=== PATIENT | male | born 1995 | race Hispanic/Latino ===

== ENCOUNTER 2016-11-17 16:10 | Emergency (ER) | payer OTHER ==
[~2016-11-17] VITALS: Ht 177.8 cm; Wt 127.3 kg
[2016-11-17 16:13] VITALS: BP 134/88; PULSE 91; RESP 16; O2SAT 96
[2016-11-17] MEDS ORDERED: 0.9% Sodium Chloride 1,000 ML IV SCH (16:40)
[2016-11-17] MEDS ORDERED: Vancomycin Dose per Pharmacist XX ONE (16:45)
--- NOTE | 2016-11-17 16:56 | PCM.CONORT ---
Subjective Surgeon Admitting Provider: Attending Provider: Primary Care Physician:Nopcp Other Provider: Reason for Consultation: right hand swelling and pain Allergy Allergies: Coded Allergies: No Known Allergies (Verified , 11/17/16) Medications No Active Prescriptions or Reported Meds History History of ENT Problems?: No HEENT History: Denies:: Abnormal Airway Cataracts Difficult Intubation Dysphagia Glaucoma Hearing Problem Sinus Problem TMJ Denture Type: None Teeth Condition: Within Normal Limits Hx of Heart Problems?: No Cardiovascular History: Denies:: AICD Abdominal Aortic Aneurism Atrial Fibrillation Cardiac Surgery Chest Pain Congestive Heart Failure Coronary Artery Disease Edema Heart Murmur Hypertension Irregular Heartbeat Pacemaker Peripheral Vascular Rheumatic Fever Thrombophlebitis Valvular Heart Disease Hx of Respiratory Problem?: No Respiratory History: Denies:: Asthma COPD Chest Surgery Cough Dyspnea Emphysema Hemoptysis Oxygen Administration Pneumonia Pulmonary Embolism Tuberculosis Use of C-PAP Machine Use of Inhalers / NEBS Hx Neurologic Problems?: No Neurological History: Denies:: Alzheimer's Disease CVA Dementia Dizziness Headaches Multiple Sclerosis Parkinson's Disease Peripheral Neuropathy Seizures TIA Hx of GI Problems?: No Gastrointestinal History: Denies:: Cirrhosis Diverticulitis Gall Bladder Disease Gastroesphageal Reflux Gastrointestinal Bleeding Heartburn Hepatitis Hiatal Hernia Liver Disease Rectal Bleeding Hx of Problems?: No Genitourinary History: Denies:: HX of Hemodialysis Kidney Stones Urinary Tract Infection Male Hx: Denies:: Prostate Problems Scrotal Mass Testicular Surgery Skin History: Denies:: History Skin Disorders? Pressure Ulcers Hx Musculoskeletal Problems?: Yes Other History/Comment Abhijeet Cornejo is a 21 year old hand dominant patient who presents to the ER with right hand pain and swelling and consultation for orthopedic evaluation of their right hand requested for ongoing symptoms. The patient states that their pain is a sharp in nature and mild/moderate in severity localized to the volar aspect of the 1st webspace of the hand without radiation. This has been progressing over the past [time] after [incident/trauma]. Moreover, the pain is exacerbated by activities, especially with movement. Rest seems to improve the symptoms. Previous treatment has included none. There is no reports numbness, tingling, or weakness to the affected distal upper extremity. The patient denies any fever, chills, nausea, vomiting, chest pain, shortness of breath, or calf tenderness. He reports a possible spider bite 2 weeks ago at his volar IP joint with no issues but reports working out on Wednesday with subsequent pain and swelling that has worsened to her 1st webspace. He denies any current medical issues, reports no tobacco use, hx of DM, does reports hx of right femur sx in the past as a child. Work/hobbies/sports include: [employer] Hx of Psycho/Social Problems?: No Psycho Social History: Denies:: Anxiety Bipolar Disorder Hx Depression Suicide Attempt Hx Surgeries?: No Hx Any Other Health Problems?: No Other History: Denies:: Cancer Endocrine Disease Hospitalization Thyroid Disease History Blood Transfusions: Denies:: Accept Blood Products? Blood Transfuse Reaction Blood Transfusions Hx Diabetes: No Hx Alcohol Use: NoHx Substance Use: No Smoking Status: Never Smoker Have You Smoked inLast 12 mo: No Objective Exam Vital Signs & I/O Vital Sign- Last 8 Hours Date Time Temp Pulse Resp B/P Pulse Ox O2 Delivery O2 Flow Rate FiO2 11/17/16 16:13 36.3 91 16 134/88 96 Room Air Review of Systems: Constitutional: Negative, except as otherwise mentioned in the history above. Ophthalmologic: Negative, except as otherwise mentioned in the history above. Cardiovascular: Negative, except as otherwise mentioned in the history above. Respiratory: Negative, except as otherwise mentioned in the history above. Gastrointestinal: Negative, except as otherwise mentioned in the history above. Genitourinary: Negative, except as otherwise mentioned in the history above. Musculoskeletal: Negative, except as otherwise mentioned in the history above. Neurological: Negative, except as otherwise mentioned in the history above. Psychiatric: Negative, except as otherwise mentioned in the history above. Hematologic/Lymphatic: Negative, except as otherwise mentioned in the history above. Allergic/Immunologic: Negative, except as otherwise mentioned in the history above. H&P Surgical Exam Exam Musculoskeletal: CONST: WD,WN, NAD, A+OX3 OCULAR: EOMI, no conjunctivitis/icterus ENT: no deformities, scars or lesions CARDIAC: Pulse is regular. No cyanosis,clubbing,edema RESP: regular,unlabored MSK: normal light touch median, ulnar, radial, lateral antebrachial, axillary nerve distribution. Intact AIN, PIN, u, r, ax motor. C5-T1 intact, 2+ r/u pulse right hand - scars, -discoloration/temp, + swelling, + loculation with nidus to the volar 1st webspace, - atrophy or asymmetry, - cascade sign, no global ligamentous laxity, TTP volar 1st webspace with fluctuance and loculations, swelling extends to border of dorsum of hand, ceases at thenar eminence ROM right Ext-flex Resisted Strength/Pain 0-85 MCP 5-/5 / + 0-110 PIP 5/5 / - 0-65 DIP 5/5 / - 60 -60 Wrist 5/5 / - 50 deg of radioulnar arc +painful arc, - crepitus Signs deferred H&P Preop Plan Impression right hand abscess Problems: Plan recommend xray of right hand MRI with contrast to evaluate extent as needed recommend bedside I+D to the right hand with exploration of septations and loculation with copious irrigation recommend packing with iodoform gauze with loose closure f/u in 2-3 days in clinic at [facility] for packing removal and evaluation oral abx X 10-14 days discussed signs /symptoms necessitating emergent intervention keep elevated oral pain meds for pain control NWB RUBinu please call with questions Won Hazel MD Nov 17, 2016 16:56
[2016-11-17] MEDS ORDERED: cefTRIAXone 2,000 mg/D5W 50 mL IV Minibag Plus IV ONE ×2 (17:00)
[2016-11-17] MEDS ORDERED: Vancomycin Inj 2,250 MG in 0.9% Sodium Chloride 500 ML IV ONE (17:00)
--- NOTE | 2016-11-17 17:00 | ED.REPORT ---
HPI-Hand Prob/Inj Date of Service Nov 17, 2016 ED Provider: Won Agudelo History of Present Illness: 21yo male presents with marked R hand erythema and swelling x 3 days. He reports he thought he had a "bug bite" in his R thumb 2 weeks ago and tried a home I&D at [facility] R thumb IP joint. R hand pain and swelling begain 3 days ago, and has worsened. No fever. Nursing Notes Stated Complaint: BUG BITE, RIGHT HAND INFECTION Chief Complaint: Extremity Trauma Nursing Notes Reviewed: Yes Allergies: Coded Allergies: No Known Allergies (Verified , 11/17/16) Scheduled Doxycycline Hyclate (Doxycycline Hyclate) 100 Mg Tablet 100 MG PO BID Scheduled PRN Hydrocodone-Acetaminophen 5-325 mg (Hydrocodone-Acetaminophen 5-325 mg) 1 Each Tablet 1 TABLET PO Q4H PRN PRN For Pain General Time Seen by Provider: 16:25 Chief Complaint Hand swelling right Hx Obtained From: Patient Onset Occurred: 3 days ago Symptom Duration: Since onset Progression Since Onset: Gradually worsening Location: Right Hand: : Thenar eminence Radiation: Radiation present Severity: Current: Moderate Severity: Maximum: Moderate Associated with: Denies: Fever, Numbness Pertinent Negative: Pt denies other symptoms Immunizations: Tetanus not up to date Recent Healthcare: No recent doctor visit Similar Sx Previous: No Past Medical History Past Medical History Notes: Pilonodal cyst Past Medical History Previously healthy primary care at [facility] Past Surgical History Abscess I&D Smoking History Never Smoker Social History Alcohol Use: Denies alcohol use Drug Use: Denies drug use Ambulatory Status Independent Review of Systems Constitutional: Denies: Chills, Fever Musculoskeletal: Reports: Extremity pain, Extremity swelling Neurologic: Denies: Focal weakness Physical Exam Initial Vital Signs Vital Signs (First) Date Time Temp Pulse Resp B/P Pulse Ox O2 Delivery O2 Flow Rate FiO2 11/17/16 16:13 36.3 91 16 134/88 96 Room Air Initial VS: Vital signs normal Right Hand: Positive: Erythema present, ROM reduced, Swelling present... ( Moderate), Tenderness present... (Moderate), Warmth present, Negative: Deformity present, Neuro deficit present... General/Constitutional: Awake, Alert, Not toxic appearing Respiratory / Chest: Breath sounds NL, Breath sounds = bilat, No respiratory distress Cardiovascular: Heart rate NL, Regular rhythm, Heart sounds NL Abdomen: Soft Lymphatic: No axillary adenopathy Interpretation & Diagnostics Lab Results Interpretation Result Diagram: 11/17/16 1655 11/17/16 1655 Test 11/17/16 16:55 White Blood Count 13.2th/mm3 (3.8-10.1) Red Blood Count 5.04mil/mm3 (4.40-5.80) Hemoglobin 15.6g/dL (13.8-17.2) Hematocrit 43.7% (41.0-50.0) Mean Corpuscular Volume 86.7fL (81-100) Mean Corpuscular Hemoglobin 31.0pg (27.0-35.0) Mean Corpuscular Hemoglobin Concent 35.7% (32.0-37.0) Red Cell Distribution Width 12.7% (12.3-15.4) Platelet Count 195bil/L (150-400) Neutrophils (%) (Auto) 79.1% (40-74) Lymphocytes (%) (Auto) 13.7% (14-46) Monocytes (%) (Auto) 6.6% (4-12) Eosinophils (%) (Auto) 0.2% (0-5) Basophils (%) (Auto) 0.2% (0-3) Sodium Level 138mEq/L (134-144) Potassium Level 3.8mEq/L (3.5-5.2) Chloride Level 102mEq/L (97-108) Carbon Dioxide Level 24mmol/L (18-29) Blood Urea Nitrogen 16mg/dL (6-20) Creatinine 0.82mg/dL (0.76-1.27) Estimat Glomerular Filtration Rate 127mL/min (>59) Glucose Level 121mg/dL (60-99) Lactic Acid Level 0.9mmol/L (0.4-2.0) Calcium Level 9.4mg/dL (8.5-10.1) Total Bilirubin 0.6mg/dL (0.0-1.2) Aspartate Amino Transf (AST/SGOT) 17U/L (0-50) Alanine Aminotransferase (ALT/SGPT) 15U/L (0-44) Alkaline Phosphatase 50U/L (25-150) Total Protein 7.5g/dL (6.4-8.4) Albumin 4.0g/dL (3.4-5.0) X-Ray Interpretation Xray Interpretation: PROCEDURE: X-RAY RIGHT HAND, TWO VIEWS ([id number]) INDICATIONS: abscess TECHNIQUE: 3 views of the hand(s) acquired. COMPARISON: None. FINDINGS: Bones: No fractures or dislocations. Carpal bones are normally aligned. No suspicious bony lesions. Soft tissues: Soft tissue swelling at the base of the second finger. There is a hyperdensity seen at the base of the thumb on the lateral view only. IMPRESSION: 1. No osseous abnormality visualized. 2. Possible opaque foreign body versus artifact at the base of the thumb. Dictated by: Jose Butler M.D. on 11/17/2016 at 17:23 Approved by: Jose Butler M.D. on 11/17/2016 at 17:25 Procedures Procedure Notes: Dr. Ribeiro, motion picture printer ortho, came to ED and advised R hand I&D, and out patient doxycycline antibiotic coverage. Dr. Ribeiro stated that Dr. Ordaz would see Pt. in office on 11/20. Incision & Drainage Abscess Time: 17:25 Procedure Performed by: [facility] pract Consent / Setup / Site Prep: Consent from patient Location of Abscess: R palmar thenar prominence. 1cm incision to radial palm, loculations broken up with hemostat. Moderate amount of pus exuded Skin Preparation Agent: Betadine Local Anesthesia: Lidocaine 1% (regional bloc at R radial wrist, with supplemental local lido.) Incised Abscess with Scalpel: #11 Pus Drained: Medium Irrigation: No Post-Procedure / Complications: Packing placed, Dressing applied, No complications, Tolerated procedure well Re-Eval/Medical Decision Med Decision/Clinical Course Pt. examined by Dr. Sheikh who concurs with IV abx. and ortho consult. Dr. Ribeiro, ortho motion picture printer, was contacted and will come to ED to evaluate patient. X-ray shows possible R hand FB vs. artifact at base of thumb. Copy of report given to Pt. to take to Dr. Ordaz's office on 11/20 Counseled Regarding: Diagnosis, Lab results, Need for follow-up, When/why to return to ED Discharge & Departure Shift Change Sign-Out Response to Therapy: Improved Departure Notes addendum: 20:55 called Pt. at home [phone] and discussed need for updated Tdap. He will see Dr. Matson on 11/20 and obtain Tdap then, if not he will return to ED for same. He acknowledged understanding of treatment plan. Primary Impression: Abscess of right hand Disposition: Home Patient Instructions: Abscess (ED) Additional Instructions: Keep dressing in place until seen by Dr. Shola Matson on 11/20. Call his office tomorrow for appointment on 11/20. Dr. Ribeiro authorized that follow up. Take antibiotic as prescribed, and hydrocodone as needed. Return to ER if pain worsens or you bleed through the bandage. Referrals: Shola Matson DO 2-3 days call 11/18 for appointment 11/20 EDSupervising Provider for APC: Abdelrahman Sheikh DO Attending Statement I have seen and examined the patient. I have reviewed the chart and agree with the documentation as recorded by the Midlevel Provider, including assessment, treatment plan, and disposition. Findings from my exam are included in documentation above. copies to: Shola Matson Christopher R [facility] Nov 17, 2016 17:00 Abdelrahman Sheikh DO Nov 17, 2016 17:24
[2016-11-17 17:07] LABS: BASOPHILS % (AUTO) 0.2 % (0-3); EOSINOPHILS % (AUTO) 0.2 % (0-5); MONOCYTES % (AUTO) 6.6 % (4-12); Mean Corpuscular Volume 86.7 fL (81-100); NEUTROPHILS % (AUTO) 79.1 % (40-74); Platelet Count 195 bil/L (150-400)
--- NOTE | 2016-11-17 17:27 | DRSVH ---
PROCEDURE: X-RAY RIGHT HAND, TWO VIEWS ([id number]) INDICATIONS: abscess TECHNIQUE: 3 views of the hand(s) acquired. COMPARISON: None. FINDINGS: Bones: No fractures or dislocations. Carpal bones are normally aligned. No suspicious bony lesions . Soft tissues: Soft tissue swelling at the base of the second finger. There is a hyperdensity seen at the base of the thumb on the lateral view only. IMPRESSION: 1. No osseous abnormality visualized. 2. Possible opaque foreign body versus artifact at the base of the thumb. Dictated by: Jose Butler M.D. on 11/17/2016 at 17:23 Approved by: Jose Butler M.D. on 11/17/2016 at 17:25
[2016-11-17] MEDS ORDERED: HYDROcodone-APAP 5-325 mg Tablet PO ONE (17:55)
[2016-11-17] MEDS ORDERED: DOXY100T2 PO (18:24)
[2016-11-17] MEDS ORDERED: HYDR-4003 PO (18:24)
[2016-11-17 19:42] VITALS: BP 124/74; PULSE 91; RESP 16; O2SAT 96
[2016-11-17 19:51] VITALS: BP 124/74; PULSE 91; RESP 16; O2SAT 96
== END 2016-11-17 19:52 | disposition home or self-care (01) ==
LOC: SED 16:10
DX: L02.511 Cutaneous abscess of right hand (principal)
CPT/HCPCS: 10061; 36415; 73120; 80053; 83605; 85025; 96361; 96365; 96366; 96367; 99284; J0696; J3370; J7030; J7040

== ENCOUNTER 2017-01-02 18:20 | Emergency (ER) | payer OTHER ==
[~2017-01-02] VITALS: Ht 177.8 cm; Wt 127.0 kg
[~2017-01-02 18:20] MED LIST: DOXY100T2 PO; HYDR-4003 PO
[2017-01-02 18:36] VITALS: BP 149/81; PULSE 90; RESP 17; O2SAT 95
--- NOTE | 2017-01-02 21:00 | ED.REPORT ---
HPI-Rash / Abscess Date of Service Jan 02, 2017 ED Provider: Doc,Ed MD History of Present Illness: 21-year-old male here for abscesses. One on his right neck one on his left forearm. They have been there for a few days. Nursing Notes Stated Complaint: HAND/NECK SWELLING Chief Complaint: Skin Rash/Abscess Nursing Notes Reviewed: Yes Allergies: Coded Allergies: No Known Allergies (Verified , 11/17/16) Scheduled Cephalexin (Keflex) 500 Mg Capsule 500 MG PO QID Doxycycline Hyclate (Doxycycline Hyclate) 100 Mg Tablet 100 MG PO BID Sulfamethoxazole/Trimeth 800-160 mg (Bactrim DS) 1 Each Tablet 1 TABLET PO BID Scheduled PRN Hydrocodone-Acetaminophen 5-325 mg (Hydrocodone-Acetaminophen 5-325 mg) 1 Each Tablet 1 TABLET PO Q4H PRN PRN For Pain General Time Seen by MD: 20:42 Chief Complaint Abscess Hx Obtained From: Patient Arrived By: Walk-in Onset Occurred: 3 days ago Symptom Duration: Constant Severity: Current: Moderate Severity: Maximum: Moderate Pertinent Negative: Pt denies other symptoms Recent Healthcare: No recent doctor visit Similar Sx Previous: Yes Past Medical History Past Medical History Notes: Pilonodal cyst Past Medical History Previously healthy primary care at [facility] Past Surgical History Abscess I&D Smoking History Never Smoker Social History Alcohol Use: Denies alcohol use Drug Use: Denies drug use Ambulatory Status Independent Review of Systems Skin: Reports Rash Complete sys rev & neg: except as marked. Physical Exam Initial Vital Signs Vital Signs (First) Date Time Temp Pulse Resp B/P Pulse Ox O2 Delivery O2 Flow Rate FiO2 01/02/17 18:36 36.9 90 17 149/81 95 Room Air Initial VS: Reviewed, Vital signs normal Head / Eyes: Atraumatic, Normocephalic, PERRL Respiratory: Breath sounds normal, Clear to auscultation, No respiratory distress Cardiovascular: Regular rate & rhythm, Heart sounds normal, Intact distal pulses Neurologic: Alert, Oriented, Nonfocal Psychiatric: Mood/affect normal, Behavior normal, Normal thought content Rash / Lesion Notes: #1 on his right neck. Quarter-sized area of erythema with a purulent head #2 on his right forearm quarter size area of induration with 2-3 inches of surrounding erythema. Tender Procedures Procedure Notes: Lesion #2 right forearm and anesthesized with lidocaine 1%. Small pinpoint incision made no purulent drainage returned. Dressing applied. no culture obtained Incision & Drainage Abscess I & D Abscess: Right neck Procedure Performed by: [facility] pract Local Anesthesia: Lidocaine 1% Incised Abscess with Scalpel: #11 Pus Drained: Purulent discharge Post-Procedure / Complications: Packing placed, Culture obtained, Dressing applied Re-Eval/Medical Decision Med Decision/Clinical Course Treatment Bactrim and Keflex follow-up in 2 days Discharge & Departure Shift Change Sign-Out Laboratory Evaluation: Lab evaluation discussed Response to Therapy: Improved Impression: Primary Impression: Cellulitis Site of cellulitis: extremity Site of cellulitis of extremity: upper extremity Laterality: right Qualified Code: L03.113 - Cellulitis of right upper limb Additional Impression: Abscess Disposition: Home Discharge Condition All VS Reviewed: Yes Condition: Stable Patient Instructions: Abscess (ED), Cellulitis (ED) Additional Instructions: Apply warm packs to your neck to assist with drainage. Take antibiotics as prescribed. Return [facility] if worsening symptoms including increasing amount of redness or increasing pain or you get a fever. Otherwise follow-up your scheduled appointment on Wednesday. Take Tylenol or ibuprofen as needed for pain. A culture was taken of your neck today we will call you if you need any change in antibiotics. Referrals: Donny Wood MD (PCP) EDSupervising Provider for APC: Debbie Sexton MD, MPH copies to: Donny Wood MD, Linnea K [facility] Jan 02, 2017 21:00
[2017-01-02] MEDS ORDERED: SULF1TAB7 PO (21:01)
[2017-01-02] MEDS ORDERED: CEPH-512 PO (21:01)
[2017-01-02] MEDS ORDERED: Trimethoprim-Sulfa 160 mg-800 mg Tablet PO ONE (21:05)
[2017-01-02 21:18] VITALS: BP 128/70; PULSE 84; RESP 16; O2SAT 97
== END 2017-01-02 21:19 | disposition home or self-care (01) ==
LOC: SED 18:20
DX: L03.113 Cellulitis of right upper limb (principal); L02.11 Cutaneous abscess of neck